=== PATIENT | female | born 1950 | race Two or more races ===

== ENCOUNTER 2017-05-01 11:07 | Outpatient (CLI) | payer OTHER | END 2017-05-01 16:34 | disposition home or self-care (01) | LOC: SONOGRAMA 11:07 | DX: R10.9 Unspecified abdominal pain (principal) ==

== ENCOUNTER 2017-05-01 11:14 | Outpatient (CLI) | payer OTHER | END 2017-05-01 16:33 | disposition home or self-care (01) | LOC: MAMO-SONO 11:14 | DX: Z12.31 Encounter for screening mammogram for malignant neoplasm of breast (principal); Z87.898 Personal history of other specified conditions; N64.4 Mastodynia ==

== ENCOUNTER 2017-05-14 14:48 | Outpatient (CLI) | payer OTHER | END 2017-05-14 15:46 | disposition home or self-care (01) | LOC: SONOGRAMA 14:48 | DX: M25.511 Pain in right shoulder (principal) ==

== ENCOUNTER 2017-05-14 14:59 | Outpatient (CLI) | payer OTHER | END 2017-05-14 15:44 | disposition home or self-care (01) | LOC: TOM 14:59 | DX: M54.6 Pain in thoracic spine (principal) ==

== ENCOUNTER 2019-04-17 12:05 | Outpatient (CLI) | payer OTHER | END 2019-04-17 12:07 | disposition home or self-care (01) | LOC: RAD 12:05 | DX: R07.89 Other chest pain (principal) ==

== ENCOUNTER 2020-03-14 08:03 | Outpatient (CLI) | payer OTHER | END 2020-03-14 08:07 | disposition home or self-care (01) | LOC: TOM 08:03 | PROVIDERS: ATTEND Anesthesiology | DX: N73.8 Other specified female pelvic inflammatory diseases (principal); N81.6 Rectocele | CPT/HCPCS: 72194; Q9965 ==

== ENCOUNTER 2020-06-23 09:47 | Outpatient (CLI) | payer OTHER | END 2020-06-23 09:52 | disposition home or self-care (01) | LOC: NUCLEAR 09:47 | PROVIDERS: ATTEND Thoracic Surgery (Cardiothoracic Vascular Surgery) | DX: I87.2 Venous insufficiency (chronic) (peripheral) (principal) ==

== ENCOUNTER 2020-07-11 13:51 | Outpatient (CLI) | payer OTHER | END 2020-07-11 14:03 | disposition home or self-care (01) | LOC: MAMO-SONO 13:51 | PROVIDERS: ATTEND Internal Medicine Endocrinology, Diabetes & Metabolism | DX: Z12.31 Encounter for screening mammogram for malignant neoplasm of breast (principal); Z87.898 Personal history of other specified conditions; N64.4 Mastodynia ==

== ENCOUNTER 2020-07-15 13:34 | Outpatient (CLI) | payer OTHER | END 2020-07-15 13:35 | disposition home or self-care (01) | LOC: NUCLEAR 13:34 | PROVIDERS: ATTEND Internal Medicine Endocrinology, Diabetes & Metabolism | DX: M81.0 Age-related osteoporosis without current pathological fracture (principal); I11.0 Hypertensive heart disease with heart failure; E04.9 Nontoxic goiter, unspecified; E78.2 Mixed hyperlipidemia ==

== ENCOUNTER 2020-10-27 11:20 | Outpatient (CLI) | payer OTHER | END 2020-10-27 11:26 | disposition home or self-care (01) | LOC: MRI 11:20 | PROVIDERS: ATTEND Anesthesiology | DX: M54.2 Cervicalgia (principal); M48.02 Spinal stenosis, cervical region | CPT/HCPCS: 72141 ==

== ENCOUNTER 2021-01-02 14:17 | Outpatient (CLI) | payer OTHER | END 2021-01-02 14:32 | disposition home or self-care (01) | LOC: MRI 14:17 | PROVIDERS: ATTEND Pain Medicine Interventional Pain Medicine | DX: M51.37 Other intervertebral disc degeneration, lumbosacral region (principal) | CPT/HCPCS: 72148 ==